=== PATIENT | male | born 2000 | race American Indian/Alaskan Native ===

== ENCOUNTER 2022-02-08 03:08 | Emergency (ER) | payer SELFPAY ==
--- NOTE | 2022-02-08 04:46 | XRay Report ---
CHEST 1 VIEW 02/08/2022 4:29 AM INDICATION / CLINICAL INFORMATION: cough. COMPARISON: None available. FINDINGS: SUPPORT DEVICES: None. HEART / MEDIASTINUM: No significant abnormality. LUNGS / PLEURA: No significant pulmonary abnormality. No significant pleural effusion. No pneumothora x. ADDITIONAL FINDINGS: No significant additional findings. IMPRESSION: 1. No acute abnormality of the chest. Signer Name: Samuel Flores MD Signed: 02/08/2022 4:42 AM Workstation Name: [id number]
[2022-02-08 08:04] VITALS: BP 128/80
--- NOTE | 2022-02-08 08:22 | Emergency Department Report ---
Minor Respiratory - [facility] Chief Complaint: Upper Respiratory Infection Stated Complaint: BODYACHE/BACK PAIN Time Seen by Provider: 02/08/22 07:56 Minor Respiratory: Yes Able to Tolerate Fluids, Yes Cough, Yes Fever (Subjective), No Rhinorrhea, No Sore Throat, No Sick Contacts, No Chest Pain, No Shortness of Breath Other History: 21-year-old obese -[place] male who is unvaccinated presents to the emergency room stating he having body aches nasal congestion runny nose decreased appetite and vomited 1 time after drinking tea yesterday. States that he is felt warm but did not check his temperature. He is currently relocated from [place] to [place]. He denies any past medical history currently takes no meds and has no known drug allergies. Patient is taking nothing for his symptoms. ED Review of Systems ROS: Stated complaint: BODYACHE/BACK PAIN Other details as noted in HPI ED Past Medical Hx - Past Medical History Previous Medical History?: No - Surgical History Past Surgical History?: No - Medications Home Medications: Home Medications Medication Instructions Recorded Confirmed Last Taken Type Ibuprofen [Motrin 800 MG tab] 800 mg PO Q8HR PRN #15 tablet 02/08/22 Unknown Rx Minor Respiratory Exam - Exam General: Vital signs noted. No distress. Alert and acting appropriately. HEENT: Yes Moist Mucous Membranes, No Pharyngeal Erythema, No Pharyngeal Exudates, No Rhinorrhea, No Conjuctival Injection, No Frontal Tenderness, No Maxillary Tenderness Neck: Yes Supple, No Adenopathy Lungs: Yes Good Air Exchange, No Wheezes, No Ronchi, No Stridor, No Cough, No Labored Respirations, No Retractions, No Use of Accessory Muscles, No Other Abno rmal Lung Sounds Heart: Yes Regular, No Murmur Abdomen: Yes Normal Bowel Sounds, No Tenderness, No Peritoneal Signs Skin: No Rash, No Edema Neurologic: Alert and oriented, no deficits. Musculoskeletal: Unremarkable. ED Course Vital Signs 02/08/22 02/08/22 02/08/22 03:13 08:02 08:03 Temperature 99.9 F H 98.8 F Pulse Rate 83 74 Respiratory 16 16 Rate Blood Pressure 132/73 128/80 [Right] O2 Sat by Pulse 99 99 Oximetry ED Medical Decision Making - Medical Decision Making 21-year-old obese -[place] male who is unvaccinated presents to the emergency room stating he having body aches nasal congestion runny nose decreased appetite and vomited 1 time after drinking tea yesterday. States that he is felt warm but did not check his temperature. He is currently relocated from [place] to [place]. He denies any past Chest x-ray shows no acute abnormalities. Discussed with patient that he needs to get COVID tested. Discussed with patient needs to find a primary care provider. He can take Tylenol Motrin for symptoms can use [id number] Zyrtec's or Nasonex for his allergies. Critical care attestation.: If time is entered above; I have spent that time in minutes in the direct care of this critically ill patient, excluding procedure time. ED Disposition Clinical Impression: Viral syndrome Disposition: 01 HOME / SELF CARE / HOMELESS Is pt being admited?: No Does the pt Need Aspirin: No Condition: Stable Instructions: Viral Respiratory Infection, [id number] Additional Instructions: Your symptoms appear most consistent with a nonspecific viral syndrome. However, given this current pandemic, COVID-19 is in the differential of possibilities. Despite your previous negative COVID-19 test, I do recommend repeat outpatient Covid 19 testing. In the meantime, isolate/quarantine yourself and stay away from anyone who is elderly, immunocompromised or chronically ill. You can use ibuprofen every 6-8 hours and Tylenol every 4-8 hours, using the dosing on the back of the bottle, as needed for any fever or body aches. Return to the emergency department with any worsening of your sym ptoms, development of chest pain or shortness of breath, or with any acute distress. Prescriptions: Ibuprofen [Motrin 800 MG tab] 800 mg PO Q8HR PRN #15 tablet PRN Reason: Pain , Severe (7-10) Referrals: PRIMARY MD RHONDA [Primary Care Provider] - 3-5 Days ALEA LIVE MD [Staff Physician] - 3-5 Days Time of Disposition: 08:23
== END 2022-02-08 08:44 | disposition home or self-care (01) ==
LOC: ED 03:08
DX: B34.9 Viral infection, unspecified (principal)
CPT/HCPCS: 71045; 99283